=== PATIENT | male | born 1990 | race Caucasian/White ===

== ENCOUNTER 2017-01-05 09:13 | Emergency (ER) | payer OTHER ==
--- NOTE | ~2017-01-05 | US67 ---
[facility] A Service of [facility] RADIOLOGY TEXT RESULTS PATIENT: MARGOTH POLLACK LOCATION: [place] : [birth year] UNIT #: [id number] AGE: [address]: Sumanth Roberts MD SEX: M ORDER DR: [id number] [place], [place] [address] [id number] E MR#: [id number] #: [id number] NAME: MARGOTH POLLACK : 1990 SEX: M STUDY DATE/TIME: 01/05/2017 11:22 UNIT: [facility] ROOM: STUDY DESCRIPTION: Gallbladder Attending Physician: Sumanth Roberts M.D. Ordering Physician: Sumanth Roberts M.D. MEDICAL IMAGING REPORT This report is preliminary unless electronic signature is present EXAM Gallbladder ultrasound. INDICATIONS Right upper quadrant pain for 1 day. TECHNIQUE Reeder-scale and color Doppler sonographic images were obtained through the right upper quadrant. FINDINGS The liver is homogeneous in echotexture, and measures within normal size limits. No focal hepatic lesions are seen. There is no gallbladder wall thickening or pericholecystic fluid. There is no intra or extrahepatic biliary dilatation. Right kidney is normal in appearance with no solid or cystic renal masses seen and there is no hydronephrosis. The gallbladder is also normal in appearance with no stones or sludge seen. There is no gallbladder wall thickening or pericholecystic fluid. Main portal vein is patent with hepatopetal flow. IMPRESSION Negative right upper quadrant ultrasound. Dictated by... Darlin Green M.D. THIS IS AN ELECTRONICALLY VERIFIED REPORT Darlin Green M.D. at 01/06/2017 10:51 AM ROC/jamison TD: 01/05/2017 16:15 JOB #: [id number] [facility] A Service of [facility] RADIOLOGY TEXT RESULTS PATIENT: MARGOTH POLLACK LOCATION: [place] : [birth year] UNIT #: [id number] AGE: [address]: Sumanth Roberts MD SEX: M ORDER DR: MEDICAL IMAGING REPORT Page 1 of 1 COPY
[2017-01-05 10:03] LABS: BASOPHIL% 0.3 % (0-2.5); EOSINOPHIL# 0.1 X10e3 (0-0.7); EOSINOPHIL% 1.4 % (0.0-7.0); HEMOGLOBIN 14.4 gm/dL (13.0-16.0); LYMPHOCYTE# 1.9 X10e3 (1.0-3.5); LYMPHOCYTE% 20.6 % (17.0-45.0); MEAN CELL VOLUME 95.5 FL (83-96); MEAN CORPUSCULAR HGB CONC 33.5 g/dL (30-36); MEAN PLATELET VOLUME 9.1 FL (6.5-11.5); MONOCYTE# 0.5 X10e3 (0-1.0); MONOCYTE% 5.3 % (3.0-12.0); NEUTROPHIL# 6.8 X10e3 (1.5-7.1); NEUTROPHIL% 72.4 % (40-75); PLATELET COUNT 179 X10e3 (140-420); RED CELL DISTRIBUTION WIDTH 13.3 % (11.0-15.5); WHITE BLOOD COUNT 9.4 X10e3 (4.0-10.5)
[2017-01-05 10:04] LABS: DIFF IND NO
[2017-01-05 10:30] LABS: ALBUMIN SERUM 4.3 g/dL (3.5-5.0); ALKALINE PHOSPHATASE 59 U/L (32-92); ALT (SGPT) 10 U/L (10-40); AMYLASE 56 U/L (0-46); AST (SGOT) 17 U/L (10-42); BILIRUBIN, DIRECT <0.1 mg/dL (0.0-0.2); BILIRUBIN,INDIRECT 0.4 mg/dL (0.0-0.9); BILIRUBIN,TOTAL 0.5 mg/dL (0.2-2.0); BLOOD UREA NITROGEN 13 mg/dL (9-23); CALCIUM SERUM 9.1 mg/dL (8.4-10.2); CARBON DIOXIDE 27 mmol/L (22-31); CHLORIDE 103 mmol/L (100-111); GLOM FILT RATE Estimated 104.2 mL/min (>60); GLUCOSE FASTING 91 mg/dL (70-110); LIPASE 92 U/L (22-51); PROTEIN TOTAL SERUM 6.9 g/dL (6.0-8.3); SODIUM 137 mmol/L (135-145)
[2017-01-05 10:40] LABS: URINE SOURCE CLEAN CATCH
[2017-01-05 10:46] LABS: URINE APPEARANCE CLEAR; URINE BILIRUBIN NEG (NEG); URINE BLOOD NEG (NEG); URINE COLOR YELLOW; URINE GLUCOSE NEG (NEG); URINE KETONE NEG (NEG); URINE LEUKOCYTE ESTERASE NEG (NEG); URINE NITRATE NEG (NEG); URINE PROTEIN NEG (NEG); URINE SPECIFIC GRAVITY 1.026 (1.003-1.035)
[2017-01-05 10:48] LABS: CULTURE INDICATED? NO
== END 2017-01-05 12:29 | disposition home or self-care (01) ==
LOC: CED 09:13
PROVIDERS: Emergency Medicine
DX: K85.90 Acute pancreatitis without necrosis or infection, unspecified (principal); Z88.2 Allergy status to sulfonamides
CPT/HCPCS: 36415; 76705; 80048; 80076; 81003; 82150; 83690; 85025; 96372; 99284; J0500